=== PATIENT | male | born 1990 | race Two or more races ===

== ENCOUNTER 2017-07-17 00:44 | Emergency (ER) | payer SELFPAY ==
[~2017-07-17] VITALS: Ht 172.7 cm; Wt 111.4 kg
[2017-07-17 00:46] VITALS: BP 149/90
[2017-07-17] MEDS ORDERED: KETOROLAC 30 MG/1 ML IM ONE (01:30)
[2017-07-17] MEDS ORDERED: KETOROLAC 30 MG/1 ML ONE (01:53)
== END 2017-07-17 02:40 | disposition home or self-care (01) ==
LOC: ED 02:34
DX: M79.642 Pain in left hand (principal)
CPT/HCPCS: 73130; 96372; 99284; J1885